=== PATIENT | male | born 1935 ===

== ENCOUNTER 2019-01-18 18:35 | Emergency (ER) | payer OTHER ==
[2019-01-18 18:47] VITALS: BP 141/76
--- NOTE | 2019-01-18 19:00 | UC ---
Respiratory Complaint HPI - HPI Summary HPI Summary: 83-year-old male who has had cold symptoms over the past 3 or 4 days. He just recently came up to visit from [place]. His has been ill and he's been caring for her. He states he developed a loose cough over the past couple of days with fever. - History of Current Complaint Chief Complaint: UCRespiratory Stated Complaint: COUGH Time Seen by Provider: 01/18/19 18:40 Hx Obtained From: Patient Onset/Duration: Gradual Onset Timing: Constant Severity Initially: Mild Severity Currently: Mild Pain Intensity: 4 Character: Cough: Nonproductive Aggravating Factors: Nothing Alleviating Factors: Nothing Associated Signs And Symptoms: Positive: Fever, URI, Nasal Congestion - Allergies/Home Medications Allergies/Adverse Reactions: Allergies Allergy/AdvReac Type Severity Reaction Status Date / Time No Known Allergies Allergy Verified 01/18/19 18:48 Home Medications: Home Medications Pseudoephedrine HCl [Sudafed] 01/18/19 [History] PMH/Surg Hx/FS Hx/Imm Hx Previously Healthy: Yes - Surgical History Surgical History: None Surgery Procedure, Year, and Place: Left achilles - Family History Known Family History: Positive: Non-Contributory - Social History Occupation: Retired Alcohol Use: None Substance Use Type: None Smoking Status (MU): Former Smoker When Did the Patient Quit Smoking/Using Tobacco: 60 years Review of Systems All Other Systems Reviewed And Are Negative: Yes Constitutional: Positive: Fever, Chills ENT: Positive: Nasal Discharge Respiratory: Positive: Cough Is Patient Immunocompromised?: No Physical Exam Triage Information Reviewed: Yes Appearance: Well-Appearing, No Pain Distress, Well-Nourished Vital Signs: Initial Vital Signs Temp 101.4 F 01/18/19 18:41 Pulse 93 01/18/19 18:41 Resp 18 01/18/19 18:41 BP 141/76 01/18/19 18:41 Pulse Ox 97 01/18/19 18:41 Vital Signs Reviewed: Yes Eyes: Positive: Conjunctiva Clear ENT: Positive: Hearing grossly normal, Pharynx normal, Nasal drainage, TMs normal, Uvula midline Neck: Positive: Supple, Nontender, No Lymphadenopathy Respiratory: Positive: No respiratory distress, No accessory muscle use, Rhonchi - Loose cough with scattered rhonchi, no distress.. Negative: Wheezing Cardiovascular: Positive: RRR, No Murmur, Pulses Normal, Brisk Capillary Refill Abdomen Description: Positive: Nontender, No Organomegaly, Soft. Negative: CVA Tenderness (R), CVA Tenderness (L), Hepatomegaly, Splenomegaly Bowel Sounds: Positive: Present Musculoskeletal Exam: Normal Neurological Exam: Normal Psychological Exam: Normal Skin Exam: Normal Respiratory Course/Dx - Course Course Of Treatment: Chest x-ray: There appears to be a possible infiltrate present. Going to treat the patient with doxycycline 100 mg by mouth twice a day 10 days. He was given Tylenol 650 mg by mouth here for his fever. He is to increase fluids. He is to follow-up with his primary care provider on Monday or Monday when he is back home in [place] if no improvement. Any worsening symptoms he can go to the emergency room. - Differential Dx/Diagnosis Provider Diagnosis: Pneumonia Discharge ED - Sign-Out/Discharge Documenting (check all that apply): Patient Departure All imaging exams completed and their final reports reviewed: No - Discharge Plan Condition: Fair Disposition: HOME Prescriptions: DOXYcycline CAP(*) [DOXYcycline 100MG CAP(*)] 100 mg PO BID 10 Days #20 cap Patient Education Materials: Pneumonia (ED) Referrals: No Primary Care Phys,NOPCP [Primary Care Provider] - [facility] [Outside] Additional Instructions: Increase fluids. No dairy products, antacids or multivitamins or calcium supplements 2 hours before you take the doxycycline and 2 hours after however take it with food. Definite follow-up with [facility] on Monday or Monday if no improvement. Go to the emergency room over the weekend if you have any worsening symptoms, shortness of breath, chest pain. - Billing Disposition and Condition Condition: FAIR Disposition: Home - Attestation Statements Provider Attestation: Per institutional requirements, I have reviewed the chart, however, I was not consulted specifically or made aware of this patient by the midlevel provider. I did not personally evaluate, interact with , or disposition this patient.
[2019-01-18] MEDS ORDERED: Acetaminophen TAB* 325 MG PO ONE (19:14)
--- NOTE | 2019-01-19 09:45 | UC ---
- Progress Note Progress Note: Patient Name: SURI SHARP Medical Record#: [id number] Ordering Physician: Fina Angel NP Acct.#: [id number] : 1935 Age: 83 Sex: M Location: [facility]RG[facility] Exam Date: 01/18/191899 ADM Status: DEP ER Order Information: CHEST PA & LAT 2 VWS Accession Number: [id number] CPT: 64717 INDICATION: Cough and fever. COMPARISON: There are no prior studies available for comparison. TECHNIQUE: Dual-energy PA and lateral views of the chest were obtained. FINDINGS: The heart is within normal limits in size. Mediastinal and hilar contours appear within normal limits. The lungs are underinflated. There is a small infiltrate at the left lung base. The lungs are otherwise clear. No pleural effusion is seen. IMPRESSION: LOW LUNG VOLUMES, SMALL LEFT BASILAR INFILTRATE. R0 Preliminary Imaging Read R0 <Electronically signed by Dane Underwood MD in OV> 01/19/19704 Dictated By: Dane Underwood MD Dictated Date/Time: 01/19/19702 Transcribed Date/Time: 01/19/19702 Copy to: CC:Tato Lloyd MD; Fina Angel NP; No Primary Care Phys,NOPCP Imaging - [facility] Imaging - [facility] [address] [address] ph ([phone]) ph ([phone]) ph ([phone]) This report is only to be considered final once signed by the Provider(s) as displayed in the "<Electronically Signed by >" field (s). Absence of a signature indicates the report is in a draft status and still needs to be finalized. In the event this document was created by someone other than the signing Provider, the individual initiating the document will be listed in the "Entered by:" or "Dictated by:" hazel. 1 of 1 Course/Dx - Diagnoses Provider Diagnoses: Pneumonia Discharge ED - Sign-Out/Discharge Documenting (check all that apply): Post-Discharge Follow Up All imaging exams completed and their final reports reviewed: Yes - Discharge Plan Condition: Fair Disposition: HOME Prescriptions: DOXYcycline CAP(*) [DOXYcycline 100MG CAP(*)] 100 mg PO BID 10 Days #20 cap Patient Education Materials: Pneumonia (ED) Referrals: [facility] [Outside] No Primary Care Phys,NOPCP [Primary Care Provider] - Additional Instructions: Increase fluids. No dairy products, antacids or multivitamins or calcium supplements 2 hours before you take the doxycycline and 2 hours after however take it with food. Definite follow-up with [facility] on Monday or Monday if no improvement. Go to the emergency room over the weekend if you have any worsening symptoms, shortness of breath, chest pain. - Billing Disposition and Condition Condition: FAIR Disposition: Home
== END 2019-01-18 19:18 | disposition home or self-care (01) ==
LOC: UCEAST 18:35
DX: J18.9 Pneumonia, unspecified organism (principal); R09.89 Other specified symptoms and signs involving the circulatory and respiratory systems; Z87.891 Personal history of nicotine dependence
CPT/HCPCS: 71046; 99202; A9270-GY; G0463